=== PATIENT | female | born 1970 | race Caucasian/White ===

== ENCOUNTER 2017-03-23 12:09 | Outpatient (CLI) | payer OTHER ==
--- NOTE | 2017-03-23 16:58 | Mammography Report ---
DIGITAL DIAGNOSTIC BILATERAL MAMMOGRAM: 03/23/2017 CLINICAL INDICATION: Right breast pain. TECHNIQUE: Bilateral CC, laterally exaggerated CC, MLO views, right true lateral view. The patient described the pain as throughout the lateral and inferior portions of the right breast, so no marker could be placed. COMPARISON: 03/25/2016, 10/22/2013. The breasts demonstrate scattered fibroglandular densities bilaterally. No suspicious masses, cluste red microcalcifications, or regions of architectural distortion are identified. Specifically, no madelin mographic abnormality is appreciated in the right inferior or lateral breast, in the regions of pain described by the patient. IMPRESSION: NEGATIVE EXAMINATION. RECOMMENDATION: ROUTINE ANNUAL SCREENING UNLESS OTHERWISE CLINICALLY INDICATED. BIRADS CATEGORY: 1, NEGATIVE. STANDARD QUALIFYING STATEMENTS 1. This examination was reviewed with the aid of Computed-Aided Detection (CAD). 2. A negative or benign imaging report should not delay biopsy if clinically suspicious findings are present. Consider surgical consultation if warranted. More than 5% of cancers are not identified b y imaging. 3. Dense breasts may obscure an underlying neoplasm. JOB #: [id number] EXT JOB #:[id number]
== END 2017-03-23 12:10 | disposition home or self-care (01) ==
LOC: DI 12:09
PROVIDERS: ATTEND Nurse Practitioner Family
DX: N64.4 Mastodynia (principal)
CPT/HCPCS: 77066

== ENCOUNTER 2017-09-19 13:53 | Outpatient (CLI) | payer OTHER ==
--- NOTE | 2017-09-19 15:12 | XRAY Report ---
TWO VIEW RIGHT FOOT: 09/19/2017 CLINICAL INDICATION: Joint pain. FINDINGS: Frontal and lateral views of the right foot demonstrate no evidence of fracture. The joint spaces are preserved. No foreign body is seen in the soft tissues. IMPRESSION: NORMAL RIGHT FOOT. TD: 09/19/2017 15:11
== END 2017-09-19 13:54 | disposition home or self-care (01) ==
LOC: DI.S 13:53
PROVIDERS: ATTEND Nurse Practitioner Family
DX: M79.671 Pain in right foot (principal)

== ENCOUNTER 2018-05-10 11:10 | Outpatient (CLI) | payer OTHER ==
--- NOTE | 2018-05-11 08:50 | Mammography Report ---
Reason: MAMMOGRAPHIC SCREENING FOR BREAST CANCER Procedure Date: 05/10/2018 Accession Number: [id number] / [id number] Procedure: PRIYANK - Screening Mammo w/Sohail CPT Code: FULL RESULT: EXAM: Screening Mammo w/Sohail DATE: 05/10/2018 11:36 AM CLINICAL HISTORY: Screening encounter. History of nulliparity. History of early menses. TECHNIQUE: Bilateral CC and MLO views were obtained. COMPARISON: 03/23/2017 through 10/22/2013. FINDINGS: The breasts demonstrate scattered fibroglandular densities bilaterally. No suspicious masses, clustered microcalcifications, or regions of architectural distortion are identified. IMPRESSION: Negative examination RECOMMENDATION: Routine annual screening unless otherwise clinically indicated. BIRADS CATEGORY 1: Negative STANDARD QUALIFYING STATEMENTS: 1. This examination was not reviewed with the aid of Computer-Aided Detection (CAD). 2. A negative or benign imaging report should not preclude biopsy if clinically suspicious findings are present. 3. Dense breasts may obscure an underlying neoplasm. 4. This examination was reviewed with the aid of 3D breast imaging (tomosynthesis).
== END 2018-05-10 11:11 | disposition home or self-care (01) ==
LOC: DI 11:10
PROVIDERS: ATTEND Nurse Practitioner Family
DX: Z12.31 Encounter for screening mammogram for malignant neoplasm of breast (principal)
CPT/HCPCS: 77063; 77067

== ENCOUNTER 2018-07-20 15:08 | Outpatient (CLI) | payer OTHER | END 2018-07-20 15:09 | disposition home or self-care (01) | LOC: LAB.F 15:08 | PROVIDERS: ATTEND Obstetrics & Gynecology | DX: N83.201 Unspecified ovarian cyst, right side (principal) | CPT/HCPCS: 36415; 86304 ==

== ENCOUNTER 2023-03-21 10:57 | Outpatient (CLI) | payer OTHER ==
--- NOTE | 2023-03-22 12:04 | Mammography Report ---
BILATERAL DIGITAL SCREENING MAMMOGRAM 3D/2D: 03/21/2023 CLINICAL: Routine screening. Comparison is made to exams dated: 05/10/2018 mammogram, 03/23/2017 mammogram, and 03/25/2016 mammogr am - [facility]. There are scattered areas of fibroglandular density in both breasts (category b / 25%-50% glandular t issue). No significant masses, calcifications, or other findings are seen in either breast. IMPRESSION: NEGATIVE There is no mammographic evidence of malignancy. A 1 year screening mammogram is recommended. Based on the Tyrer Cuzick model (a risk assessment model) the patients lifetime risk is 10.4% and he r 10 year risk is 2.4%. According to the ACR, ACS, and NCCN guidelines, an annual breast MRI exam wilfrid ng with mammogram is recommended if the patients lifetime risk is 20% or greater. This exam was interpreted at Station ID: [id number]. NOTE: For mammograms, a report in lay terms will be sent to the patient. Approximately 15% of breast malignancies will not be visualized mammographically. In the management of a palpable breast mass, a negative mammogram must not discourage biopsy of a clinically suspicious lesion. Electronically Signed By: Hortencia Ceballos M.D., PH.D neymar/[email or web address]:03/22/2023 01:10:28 letter sent: No_Letter ACR BI-RADS Category 1: Negative 3341F PARENCHYMAL PATTERN: (A) - The breast(s) demonstrate(s) scattered fibroglandular densities. BI-RADS CATEGORY: (1) - 1 Mammogram [id number] 1 year screening LATERALITY: (B)
== END 2023-03-21 10:58 | disposition home or self-care (01) ==
LOC: DI.S 10:57
PROVIDERS: ATTEND Physician Assistant
DX: Z12.31 Encounter for screening mammogram for malignant neoplasm of breast (principal); R92.323 Mammographic fibroglandular density, bilateral breasts